=== PATIENT | female | born 1965 | race Caucasian/White ===

== ENCOUNTER 2024-10-31 08:28 | Emergency (ER) | payer OTHER, SELFPAY ==
[2024-10-31 08:49] VITALS: BP 175/104; PULSE 67; RESP 16; TEMP 36.8; O2SAT 97; BMI 29.5
--- NOTE | 2024-10-31 09:50 | ED.GENADULT ---
HPI - General Adult General Chief complaint: General Medical Stated complaint: pysch eval Time Seen by Provider: 10/31/24 09:49 Source: patient Mode of arrival: ambulatory Limitations: no limitations History of Present Illness ED Provider: Yanira Morales PA-C HPI narrative: Patient is a 58 year old assigned female at with a history of depression, anxiety, HTN, and heart surgery presenting to the emergency department today requesting a medication refill. Patient states that she is on Sertraline 150mg a day and has been out for at least 2 weeks. Patient states that she tried to get her new child psychology teacher to prescribed it but she won't. Patient states that she is not sure why her records reflect that she hasn't filled that prescription since 10/2023. Patient states that it may be because she was getting the medication from a friend whose mother was prescribed it and recently . Patient states that she need something because she is yelling at everyone . Patient denies any dizziness, lightheadedness, abdominal pain, nausea, vomiting, fever, chills, blurry vision, double vision, loss of vision, chest pain, difficulty breathing, shortness of breath, back pain, night sweats, pain with urination, increased urinary frequency, increased urinary urgency, blood in her urine or stool, syncope or a near syncopal episode, recent trauma or falls, bowel incontinence, bladder incontinence, or any other complaints at this time. Relieving factors: none Exacerbating factors: none Associated symptoms: denies other symptoms Treatments prior to arrival: none Related Data Previous Rx's ?Medication ?Instructions ?Recorded sertraline 50 mg tablet 50 mg PO DAILY #30 tabs 10/31/24 Allergies Allergy/AdvReac Type Severity Reaction Status Date / Time erythromycin base Allergy Intermediate ITCHING/RASH/GI Verified 10/31/24 08:54 [ERYTHROMYCIN BASE] UPSET Penicillins [PENICILLINS] Allergy Intermediate ITCHING/JUAN JOSE Verified 10/31/24 08:54 H vancomycin [VANCOMYCIN] Allergy Mild FLUSHED Verified 10/31/24 08:54 FACE AND ITCHINESS penicillin V Allergy Unknown Hives Verified 10/31/24 08:54 arithomycin Allergy Unknown Hives Uncoded 10/31/24 08:54 Review of Systems Constitutional: Constitutional: Reports no additional constitutional complaints, Denies chills, Denies fever(s) and Denies night sweats Eyes: Eyes: Reports no additional eye complaints, Denies blurry vision, Denies change in vision, Denies diplopia, Denies eye discharge, Denies loss of vision and Denies eye pain ENT: Denies dizziness Cardiovascular: Cardiovascular: Reports no additional cardiovascular complaints, Denies chest pain, Denies lightheadedness, Denies Loss of Consciousness and Denies dyspnea Respiratory: Respiratory: Reports no additional respiratory complaints and Denies dyspnea Gastrointestinal: Gastrointestinal: Reports no additional gastrointestinal complaints, Denies abdominal pain, Denies melena, Denies hematochezia, Denies change in bowel habits and Denies change in stool character Genitourinary: Genitourinary: Denies hematuria, Denies urinary frequency, Denies dysuria, Denies urinary incontinence, Denies urinary hesitancy and Denies urinary urgency Musculoskeletal: Musculoskeletal: Reports no additional musculoskeletal complaints, Denies numbness and Denies tingling Neurologic: Reports behavioral changes, Denies dizziness, Denies loss of vision, Denies numbness and Denies tingling Psychiatric: Psychiatric: Reports behavioral changes Endocrine: Endocrine: Reports no additional endocrine complaints Hematologic/Lymphatic: Hematologic/Lymphatic: Reports no additional hematologic/lymphatic complaints Allergic/Immunologic: Allergic/Immunologic: Reports no additional allergic/immunologic complaints PMFSH Past Medical History Attestation statement: The following information was validated with the patient. Source: old records reviewed and nursing notes reviewed Social History Social History Advance Directives: No Advance Directives Information Provided: No Do you have a plan to hurt others: No Plan Physical Exam ED Vital Signs: Vital Signs - 24 hr 10/31/24 08:49 Temperature 98.2 F Pulse Rate 67 Respiratory Rate 16 Blood Pressure 175/104 H Pulse Oximetry 97 Oxygen Delivery Method Room Air BMI result Body Mass Index 29.5 Const General: cooperative, no acute distress, alert and awake Nutritional Appearance: well nourished Orientation/consciousness: patient oriented x3 Limitations: no limitations HENMT Head: Yes normal to inspection and Yes atraumatic Ears: hearing grossly normal bilaterally and external ears normal General nose exam: Normal external nose present, no nasal discharge noted and no epistaxis Face and sinus: Yes normal facial exam, No abrasion and No laceration Mouth: Normal oral and palatal mucosa present, no drooling and no muffled voice Eyes General: appearance normal, both eyes and all related structures Periorbital: periorbital findings normal Eyelids: Yes eyelids normal Conjunctivae: conjunctivae normal Pupils: Equal, round and reactive pupils present EOM: EOMs intact bilaterally Neck Neck: Yes normal visual inspection, Yes full ROM and Yes no lymphadenopathy Chest Chest palpation & inspection: normal inspection of the chest Resp Effort & Inspection: normal respiratory effort and able to speak in complete sentences GI Inspection: Yes normal to inspection Neuro General: patient oriented x3 and moves all extremities Cranial nerves: Yes Equal, round and reactive pupils present Cognition (Neuro): normal cognition Extrem General: Yes normal to inspection, Yes full ROM and Yes capillary refill normal Psych Appearance: grossly normal Mental Status: mental status grossly normal Affect: normal affect Attitude: cooperative Thought process: Normal thought process present Thought content: Normal thought content present Insight: Good insight present (Psych) Medical Decision Making Medical Decision Making MDM Narrative: Patient is a 58 year old assigned female at with a history of depression, anxiety, HTN, and heart surgery presenting to the emergency department today requesting a medication refill. Patient's physical exam was unremarkable. I consulted with the psychiatry team who recommended starting the patient on 50mg of Sertraline and having her follow up with her PCP / psychiatrist. I explained my physical exam findings as well as all test results to the patient. I answered all questions asked by the patient. Patient confirmed she does not have any thoughts of hurting herself or others. I stressed the importance of the patient taking her medication as directed (either prescribed or as the over the counter packaging recommends). I stressed the importance of the patient following up with her primary care provider. I stressed the importance of the patient returning to the emergency department immediately if her symptoms were to worsen or if she were to develop any dizziness, shortness of breath, difficulty breathing, chest pain, blurry vision, loss of vision, nausea, vomiting, abdominal pain, fever, chills, back pain, or any other complaints. Patient verbalized agreement and understanding with this treatment plan and discharge. Differential Diagnosis Differential Diagnoses: The differential diagnosis associated with the presentation includes Medication refill Admission/Observation Consideration of admission/observation: Escalation of care including admission/observation considered Patient would have been admitted to the hospital had her clinical presentation warranted hospital admission. Consult Healthcare Provider Management of the patient was discussed with: Director Of Entertainment (spoke with the psychiatry team as noted in the MDM Rationale portion of this note.) Discharge Plan Discharge Clinical Impression: Medication refill Patient Disposition: Home, Self-Care Instructions: Medicine Refill (ED) Additional Instructions: Follow up with your primary care provider and your psychiatrist. Return to the emergency department immediately if your symptoms worsen or if you develop any dizziness, shortness of breath, difficulty breathing, chest pain, blurry vision, loss of vision, nausea, vomiting, abdominal pain, fever, chills, back pain, or any other complaints. Prescriptions: New sertraline 50 mg tablet 50 mg PO DAILY Qty: 30 0RF Print Language: Luxembourgish
[2024-10-31 11:58] VITALS: BP 150/87; PULSE 71; RESP 18; TEMP 36.9; O2SAT 97
[2024-10-31 12:20] VITALS: BP 150/87; PULSE 71; RESP 18; TEMP 36.9; O2SAT 97
[2024-10-31 12:22] VITALS: BP 150/87; PULSE 71; RESP 18; TEMP 36.9; O2SAT 97
== END 2024-10-31 12:22 | disposition home or self-care (01) ==
PROVIDERS: Emergency Provider Emergency Medicine; PCP Nurse Practitioner Family
DX: F33.1 Major depressive disorder, recurrent, moderate (principal); I10 Essential (primary) hypertension; Z76.0 Encounter for issue of repeat prescription; Z79.899 Other long term (current) drug therapy
CPT/HCPCS: 99283; 99284

== ENCOUNTER 2024-11-10 09:46 | Emergency (ER) | payer OTHER, SELFPAY ==
--- NOTE | ~2024-11-10 | CT_ITS ---
EXAMINATION: CT CHEST WITHOUT CONTRAST CLINICAL INFORMATION: Fall, rib fractures. COMPARISON: None available. TECHNIQUE: Multidetector volumetric CT imaging of the chest was done. Axial MIP volume rendering provided. Sagittal and coronal reformatted images were obtained. This CT examination was performed using dose optimization techniques as appropriate, variously including the following: *Automated exposure control *Adjustment of mA and/or kV according to patient size (this includes techniques or standardized protocols for targeted exams where dose is matched to indication/reason for exam; i.e. extremities or head) *Use of iterative reconstruction technique FINDINGS: LUNGS: -There is no pneumothorax or pleural effusion. -There are minimal subpleural fibrotic changes in the lateral right middle lobe, anterolateral right lower lobe, and posterior and lateral left lower lobe. Mild subpleural fibrosis also present in the medial inferior left upper lobe and lateral inferior left upper lobe. Minimal scarring seen in the lingular segment. -9 x 6 mm oval nodule in the inferior most right upper lobe abutting the minor fissure (series 29, image 224), with small low-attenuation foci measuring fat density, finding consistent with hamartoma. -No additional suspicious nodules. -No consolidative opacities. -Small airways are normal. -Central airways are patent. MEDIASTINUM: -Mild cardiac enlargement. No pericardial effusion. -No abnormal lymphadenopathy or mass within the mediastinum. -Aorta is normal in caliber and course. -Main pulmonary arteries are normal in size. -Thyroid is mildly heterogeneous without dominant nodule. -Small type I hiatus hernia and GE junction. CORONARY ARTERY CALCIFICATION: None visualized on this study. PLEURA: There is no pleural effusion. No pneumothorax. AXILLA: No lymphadenopathy. UPPER ABDOMEN: -There is a 1.8 cm low-attenuation oval mass in segment 2, nonspecific. There is a smaller 0.9 cm low-attenuation mass in segment 8. These are nonspecific and do not definitively represent cysts. -There has been a cholecystectomy. -There is borderline splenic enlargement. -Only the superior kidneys are imaged, possible hydronephrosis versus parapelvic cysts. Refer to the dedicated CT abdomen and pelvis. OSSEOUS STRUCTURES: -No discrete fractures are identified. No definite rib fractures seen. The vertebral column and ribs appear intact. CT/CT chest wo IV con IMPRESSION: 1. No acute posttraumatic abnormalities identified. 2. Mild regions of subpleural fibrosis as discussed. No pneumothorax or effusion. 3. Mild cardiac enlargement. No pericardial effusion. 4. A 6 mm oval nodule abutting the minor fissure within the inferior right upper lobe. This has low-attenuation foci suggestive of fat, and is most consistent with a benign hamartoma. Electronically signed by: Neeraj Regan MD 11/10/2024 12:34 PM [facility]
--- NOTE | ~2024-11-10 | CT_ITS ---
EXAMINATION: CT ABDOMEN AND PELVIS WITHOUT CONTRAST CLINICAL INFORMATION: Fall, rule out spine or pelvis fracture. COMPARISON: No prior. TECHNIQUE: Multidetector volumetric imaging was performed from the superior aspect of the liver through the pubic symphysis. Sagittal and coronal reformatted images were obtained on the technologist's workstation. This CT examination was performed using dose optimization techniques as appropriate, variously including the following: *Automated exposure control *Adjustment of mA and/or kV according to patient size (this includes techniques or standardized protocols for targeted exams where dose is matched to indication/reason for exam; i.e. extremities or head) *Use of iterative reconstruction technique FINDINGS: LUNG BASES: The visualized lung bases are unremarkable. LIVER, GALLBLADDER, AND BILIARY TREE: Liver demonstrates a subtle 1.5 cm hypoattenuating segment 2 mass. There is a 1.1 cm subtle hypoattenuating segment 8 mass. These do not meet criteria for simple cysts but cannot be further characterized. Gallbladder is surgically absent. No biliary dilatation. PANCREAS: Unremarkable. SPLEEN: Unremarkable. ADRENAL GLANDS: Unremarkable. KIDNEYS AND URETERS: - Mild hydronephrosis of both renal collecting systems with transition to normal caliber at both UPJs, suggestive of chronic UPJ obstructions. No calculi or renal mass. The ureters are normal. BLADDER: Normal/intact. GASTROINTESTINAL TRACT: -Moderate-sized type I hiatus hernia. -Normal appendix. -Small bowel and colon demonstrate no focal abnormalities, wall thickening, or dilatation. ABDOMINAL WALL: -Tiny fat-containing umbilical hernia. LYMPH NODES: Normal. VASCULAR: Unremarkable. PELVIC VISCERA: The uterus and adnexa are unremarkable. OSSEOUS STRUCTURES: -Mild superior endplate concavity of L1 appears chronic. -No acute fractures evident. The pelvis is intact. -Bone island left pedicle L5. CT/CT abdomen pelvis wo IV con IMPRESSION: 1. No acute findings in the abdomen or pelvis. No fractures seen. 2. 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 3. There are 2 nonspecific hypoattenuating foci in the liver, larger measuring 1.5 cm in segment II, not meeting criteria for simple cysts. No prior for comparison. In the absence of known malignancy these are likely benign entities. Further evaluation could be obtained with MRI if felt warranted. Electronically signed by: Neeraj Regan MD 11/10/2024 12:51 PM EST
--- NOTE | ~2024-11-10 | CT_ITS ---
EXAMINATION: CT HEAD WITHOUT CONTRAST CLINICAL INFORMATION: fall COMPARISON: CT report dated February 24, 2013. TECHNIQUE: Contiguous axial imaging was performed from the skull base to vertex without intravenous administration of contrast. This CT examination was performed using dose optimization techniques as appropriate, variously including the following: *Automated exposure control *Adjustment of mA and/or kV according to patient size (this includes techniques or standardized protocols for targeted exams where dose is matched to indication/reason for exam; i.e. extremities or head) *Use of iterative reconstruction technique DLP: 2256 mGy-cm FINDINGS: Bony calvarium is intact. Skull base is intact. No acute hematoma, intraconal or extraconal compartments of the orbits. No acute intracranial hemorrhage, mass effect, midline shift, hydrocephalus or herniation. Marinelli-white matter differentiation is normal. Posterior cranial fossa contents demonstrated no acute intracranial hemorrhage or mass effect. Calcified plaques in the cavernous supracavernous segments both ICAs. Retention cysts versus polyp, right maxillary sinus. Levoconvex nasal septum herniation. Tympanic cavities and mastoid air cells are aerated.. CT/CT head/brain wo IV con IMPRESSION: No acute fracture, bony calvarium. No acute intracranial hemorrhage. Electronically signed by: Brown Jenkins MD 11/10/2024 12:14 PM [facility]
--- NOTE | ~2024-11-10 | CT_ITS ---
EXAMINATION: CT CERVICAL SPINE WITHOUT CONTRAST CLINICAL INFORMATION: Status post fall. COMPARISON: None available. TECHNIQUE: Contiguous axial images through the cervical spine using 3 mm collimation with bone and soft tissue algorithm. Sagittal and coronal reformatted images acquired. This CT examination was performed using dose optimization techniques as appropriate, variously including the following: *Automated exposure control *Adjustment of mA and/or kV according to patient size (this includes techniques or standardized protocols for targeted exams where dose is matched to indication/reason for exam; i.e. extremities or head) *Use of iterative reconstruction technique. DLP: 406.96 mGy centimeter. FINDINGS: Craniocervical junction is intact. C1 is intact. C2 is intact. C3 is intact. C4 is intact. C5 is intact. C6 is intact. C7 is intact. No gross malalignment. No gross prevertebral compartment hematoma. Multilevel cervical spondylosis from C4 to C7. Tympanic cavities and mastoid air cells are aerated. CT/CT cervical spine wo IV con IMPRESSION: Multilevel cervical spondylosis. No acute fracture or trauma-related listhesis. If patient's symptoms persist recommend MRI cervical spine. Fleischner guidelines were followed. Electronically signed by: Brown Jenkins MD 11/10/2024 12:22 PM [email or web address]
[2024-11-10 09:49] VITALS: BP 190/110; PULSE 83; O2SAT 95
[2024-11-10 09:54] VITALS: BP 178/89; PULSE 80; RESP 18; TEMP 36.7; O2SAT 97; BMI 31.4
--- NOTE | 2024-11-10 10:34 | ED.GENADULT ---
HPI - General Adult General Chief complaint: Fall Stated complaint: SLIP/FALL WALKING DOG,HIT HEAD,+THINN,-LOC PER EMS Time Seen by Provider: 11/10/24 10:04 Source: patient Mode of arrival: ambulatory Limitations: no limitations History of Present Illness ED Provider: Fernando Whitfield PA-C HPI narrative: 58 yold female presents to the ED for fall. patient states she slipped on ice and fell. Patient states she fell while walking the dog. Patient denies any chest pain, shortness of breath, headache, dizziness, abdominal pain before fall. Patient states she slipped on ice and fell. Patient is complaining of headache and neck pain Related Data Previous Rx's ?Medication ?Instructions ?Recorded sertraline 50 mg tablet 50 mg PO DAILY #30 tabs 10/31/24 cyclobenzaprine 10 mg tablet 10 mg PO BEDTIME PRN muscle spasm 11/10/24 #10 tabs Allergies Allergy/AdvReac Type Severity Reaction Status Date / Time erythromycin base Allergy Intermediate ITCHING/RASH/GI Verified 11/10/24 09:57 [ERYTHROMYCIN BASE] UPSET Penicillins [PENICILLINS] Allergy Intermediate ITCHING/JUAN JOSE Verified 11/10/24 09:57 H vancomycin [VANCOMYCIN] Allergy Mild FLUSHED Verified 11/10/24 09:57 FACE AND ITCHINESS penicillin V Allergy Unknown Hives Verified 11/10/24 09:57 arithomycin Allergy Unknown Hives Uncoded 11/10/24 09:57 Review of Systems Review of Systems: headache, and neck pain Yes all other systems are reviewed and are negative Physical Exam ED Vital Signs: Vital Signs - 24 hr 11/10/24 09:54 11/10/24 12:00 11/10/24 13:42 Temperature 98.0 F 97.5 F 97.5 F Pulse Rate 80 76 76 Respiratory Rate 18 16 16 Blood Pressure 178/89 H 162/91 H 162/91 H Pulse Oximetry 97 96 96 Oxygen Delivery Method Room Air Room Air Room Air BMI result Body Mass Index 31.4 Const General: cooperative, healthy appearing, comfortable, no acute distress, well developed, alert, awake and Physically active Orientation/consciousness: patient oriented x3 HENMT Head: Yes normal to inspection, Yes No palpable skull fracture present, Yes normocephalic and Yes atraumatic Head images: 1. Tenderness on palpation but negative for any hematoma, ecchymosis, crepitus, or lacerations Eyes General: appearance normal, both eyes and all related structures Neck Neck: Yes normal visual inspection, Yes full ROM, Yes no lymphadenopathy, Yes no meningeal signs, Yes trachea midline, Yes supple, No anterior neck swelling and Yes tender (posterior cervical) Chest Chest palpation & inspection: normal inspection of the chest and normal palpation of entire chest wall Resp Effort & Inspection: normal respiratory effort and able to speak in complete sentences Auscultation: clear to auscultation bilaterally Cardio Jugular venous distension: no JVD Heart sounds: S1 normal heart sound present and S2 normal heart sound present GI Inspection: Yes normal to inspection Palpation (GI): Soft to palpation, not firm, nontender, no guarding and not rigid General: Yes no CVA tenderness Back/Spine/Pelvis Back: no CVA tenderness and No back tenderness Skin General skin exam: no rashes or lesions noted, elasticity normal and turgor normal Neuro General: patient oriented x3, gait normal, tone normal, moves all extremities, Normal light touch and pain sensation, no meningeal signs, no focal motor deficits, CN's II-XI intact bilaterally and normal sensation to monofilament Extrem Other: All extremities negative for swelling, redness, ecchymosis, crepitus, tenderness, or deformity. Motor/neuro/vascular exam intact. General: Yes normal to inspection, Yes full ROM and Yes capillary refill normal Psych Appearance: grossly normal, well kempt and not disheveled Medications Administered Discontinued Medications Generic Name Dose Route Start Last Admin Trade Name Freq PRN Reason Stop Dose Admin Acetaminophen 975 mg 11/10/24 10:30 11/10/24 10:56 Acetaminophen 325 Mg Tablet PO 11/10/24 10:31 975 mg ONCE ONE Administration Medical Decision Making Medical Decision Making [facility] Narrative: 58-year-old female presents to ED for fall while walking dog. Patient has slipped due to ice. Patient had mechanical fall. Patient is sent for imaging. Tylenol given. Patient is on blood thinner. 1:27pm: Patient is alert oriented x3. Whole-body evaluated negative for signs of life-threatening etiology. Patient no longer has any shoulder pain. not suspecting any shoulder fracture or dislocations. Patient just having neck pain referred to bilateral shoulders after fall. Cervical spine CT scan shows radiculopathy. Not suspecting AR. Patient has benign lung nodule and benign mass on liver. Patient made aware of those given copy of the images. Patient explained worrisome signs and informed to return to the ED immediately. Not suspecting stroke, AR, CHF, brain bleed, cervical spine fracture, pneumothorax, hemothorax, any life-threatening etiology. Patient given copy of the images for follow-up. Differential Diagnosis Differential Diagnoses: The differential diagnosis associated with the presentation includes (Hip fracture brain bleed, cervical spine fracture) Admission/Observation Consideration of admission/observation: Escalation of care including admission/observation considered Independent Interpretation I performed an independent interpretation of an: CT Scan Radiology Impression Discussion of test interpretation with radiology: I have reviewed the radiologist's reading. Independent Historian Clinical information obtained from an independent historian. History obtained from or confirmed by: Other (Patient) Discharge Plan Discharge Clinical Impression: Fall Patient Disposition: Home, Self-Care Instructions: Fall Prevention for Older Adults (ED) Additional Instructions: Return to the ED immediately for any chest pain, shortness of breath, abdominal pain, neck pain, dizziness, slurred speech, facial droop, paralysis of extremities, loss of vision, redness, swelling, bluish black discoloration, headache, blood in stool, blood in urine, vomiting blood, or any other concerning symptoms. Due to you taking blood thinners he should only take Tylenol for pain relief. You will be also given muscle relaxer. Prescriptions: New cyclobenzaprine 10 mg tablet 10 mg PO BEDTIME PRN (Reason: muscle spasm) Qty: 10 0RF Rx Instructions: side effect is drowsiness. Do not take work or driving No Action sertraline 50 mg tablet 50 mg PO DAILY Qty: 30 0RF Stand Alone Forms: Work/School Release Interventions: ED Discharge Assessment Last Done: 11/10/24 13:42 Discharge Date/Time: 11/10/24 13:43 Print Language: Malay
--- OUTSIDE RECORDS SUMMARY | 2024-11-10 10:54 | XMS_ITS | Encounter Summary ---
Author Organization [facility] Address [address] [place] [address] Phone Care Team Providers Care Radiology Assistant Name Role Phone Fred Meléndez MD Primary Care Provider +1- [phone] Encounter Details Date Type Department Care Team (Late st Contact Info) Description 01/09/2024 Documentation Only [facility] [address] [place] [address] Merle Randolph [address] [place] [address] Social History Tobacco Use Types Packs/Day Years Used Date Smoking Tobacco: Never Alcohol Use Standard Drinks/Week Comments No 0 (1 standard drink = 0.6 oz pur e alcohol) Comments Unknown Sex and Gender Information Value Date Recorded Sex Assigned at Not on file Legal Sex Female 4:31 PM EST Gender Identity Not on file Sexual Orientation Not on file documented as of this encounter Plan of Treatment Upcoming Encounters Date Type Department Care Team (Late st Contact Info) Description 01/06/2025 3:45 PM EDT Office Visit [facility] [address] [place] [address] Elder Romero MD [address] [place] [address] [place] [address] documented as of this encounter Visit Diagnoses Not on filedocumented in this encounter Care Teams Radiology Assistant Relationship Specialty Start Date End Date Fred Meléndez MD [address] [place] [address] [address] [place] PCP - General 08/12/19 documented as of this encounter
--- OUTSIDE RECORDS SUMMARY | 2024-11-10 10:54 | XMS_ITS | Encounter Summary ---
Author Organization [facility] Address [address] [place] [address] Phone Care Team Providers Care Switch Maker Name Role Phone Fred Meléndez MD Primary Care Provider +1- [phone] Encounter Details Date Type Department Care Team (Late st Contact Info) Description 11/16/2023 Documentation Only [facility] [address] [place] [address] Merle Randolph [address] [place] [address] Social History Tobacco Use Types [...] Visit [facility] [address] [place] [address] Elder Romero MD [address] [place] [address] [place] [address] documented as of this encounter Visit Diagnoses Not on filedocumented in this encounter Care Teams Switch Maker Relationship Specialty Start Date End Date Fred Meléndez MD [address] [place] [address] [address] [place] PCP - General 08/12/19 documented as of this encounter
--- OUTSIDE RECORDS SUMMARY | 2024-11-10 10:54 | XMS_ITS | Encounter Summary ---
Author Organization [facility] [place], Address [address] [place] [address] Phone Care Team Providers Care Pit Tanner Name Role Phone Fred Meléndez MD Primary Care Provider +1- [phone] Encounter Details Date Type Department Care Team (Late Contact Info) Description 11/03/2022 Documentation Only [facility] [address] [place] [address] Anant Krause [place] [address] [place] [address] Social History Tobacco Use Types [...] Visit [facility] [address] [place] [address] Elder Romero MD [address] [place] [address] [place] [address] documented as of this encounter Visit Diagnoses Not on filedocumented in this encounter Care Teams Pit Tanner Relationship Specialty Start Date End Date Fred Meléndez MD [address] [place] [address] [address] [place] PCP - General 08/12/19 documented as of this encounter
--- OUTSIDE RECORDS SUMMARY | 2024-11-10 10:54 | XMS_ITS | Encounter Summary ---
Author Organization [facility] Address [address] [place] [address] Phone Care Team Providers Care Mortgage Underwriter Name Role Phone Fred Meléndez MD Primary Care Provider +1- [phone] Encounter Details Date Type Department Care Team (Late st Contact Info) Description 10/29/2023 Documentation Only [facility] [address] [place] [address] Merle Randolph [address] [place] [address] Social History Tobacco Use Types [...] Visit [facility] [address] [place] [address] Elder Romero MD [address] [place] [address] [place] [address] documented as of this encounter Visit Diagnoses Not on filedocumented in this encounter Care Teams Mortgage Underwriter Relationship Specialty Start Date End Date Fred Meléndez MD [address] [place] [address] [address] [place] PCP - General 08/12/19 documented as of this encounter
--- OUTSIDE RECORDS SUMMARY | 2024-11-10 10:54 | XMS_ITS | Encounter Summary ---
Author Organization [facility] [place], Address [address] [place] [address] Phone Care Team Providers Care Board Winder Name Role Phone Fred Meléndez MD Primary Care Provider +1- [phone] Encounter Details Date Type Department Care Team (Late st Contact Info) Description 09/15/2021 Documentation Only [facility] [address] [place] [address] Elder Romero MD [address] [facility] [place] [address] Social History Tobacco Use Types Packs/Day Years [...] Visit [facility] [address] [place] [address] Elder Romero MD [address] [facility] [place] [address] documented as of this encounter Visit Diagnoses Not on filedocumented in this encounter Care Teams Board Winder Relationship Specialty Start Date End Date Fred Meléndez MD [address] [place] [address] [address] [place] PCP - General 08/12/19 documented as of this encounter
--- OUTSIDE RECORDS SUMMARY | 2024-11-10 10:54 | XMS_ITS | Encounter Summary ---
Author Organization [facility] [place], Address [address] [place] [address] Phone Care Team Providers Care Child Care Centre Director Name Role Phone Fred Meléndez MD Primary Care Provider +1- [phone] Encounter Details Date Type Department Care Team (Late st Contact Info) Description 10/11/2022 Documentation Only [facility] [address] [place] [id number] Rich Argueta PA Social History Tobacco Use Types Packs/Day Years [...] Visit [facility] [address] [place] [address] Elder Romero MD [address] [place] [address] [place] [address] documented as of this encounter Visit Diagnoses Not on filedocumented in this encounter Care Teams Child Care Centre Director Relationship Specialty Start Date End Date Fred Meléndez MD [address] [place] [address] [address] [place] PCP - General 08/12/19 documented as of this encounter
--- OUTSIDE RECORDS SUMMARY | 2024-11-10 10:54 | XMS_ITS | Encounter Summary ---
Author Organization [facility] [place], Address [address] [place] [address] Phone Care Team Providers Care Paraprofessional Education Assistant Name Role Phone Fred Meléndez MD Primary Care Provider +1- [phone] Encounter Details Date Type Department Care Team (Late st Contact Info) Description 10/27/2024 Orders Only [facility] [address] [place] [address] Rich Argueta PA Chronic kidney disease, stage 2 (mild); Essential (primary) hypertension; History of repair of mitral valve; Mood disorder, not otherwise specified (HCC); USP current use of anticoagulant; Long-term current use of lithium; Hematuria, not otherwise specified Social History Tobacco Use Types Packs/Day Years [...] Visit [facility] [address] [facility] [place] [address] Elder Romero MD [address] [place] [address] [place] [address] documented as of this encounter Visit Diagnoses Diagnosis Chronic kidney disease, stage 2 (mild) Essential (primary) hypertension History of repair of mitral valve Mood disorder, not otherwise specified (HCC) USP current use of anticoagulant Long-term current use of lithium Hematuria, not otherwise specified documented in this encounter Care Teams Paraprofessional Education Assistant Relationship Specialty Start Date End Date Fred Meléndez MD [address] [place] [address] [address] [place] PCP - General 08/12/19 documented as of this encounter
--- OUTSIDE RECORDS SUMMARY | 2024-11-10 10:54 | XMS_ITS | Clinical Summary ---
Author Organization [facility], Address [address] [place] [address] [place] [address] Phone Care Team Providers Care Flying Instructor Name Role Phone Fred Meléndez MD Primary Care Provider [phone] Allergies Active Allergy Reactions Criticality Noted Date Comments [place] 10/13/2022 Other reaction(s): itchy throat Erythromycin Other (see comments) 10/09/2021 Erythromycin Base 10/29/2023 Penicillin G Other (see comments) 10/09/2021 Medications ferrous sulfate 324 (65 Fe) MG EC tablet Active LORazepam (Ativan) 0.5 MG tablet Take 1 tablet by mouth 1 (one) time each day Active nitroglycerin (NITROSTAT) 0.[address] under the tongue Active raNITIdine (ZANTAC) 150 MG capsule Take 1 capsule by mouth 2 (two) times a day Active topiramate (Topamax) 50 MG tablet Take 1 tablet by mouth 2 (two) times a day Active warfarin (Coumadin) 5 MG tablet Take 1 tablet by mouth 1 (one) time each day Active buPROPion SR (WELLBUTRIN SR) 150 MG 12 hr tablet Take 150 mg by mouth daily Do not crush, chew, or split. Active lithium 150 MG capsule Take 150 mg by mouth every night Active LORazepam (Ativan) 0.5 MG tablet Take 0.5 mg by mouth 01/01/2017 Active nitroglycerin (NITROSTAT) 0.[address] 0.4 mg under the tongue 03/09/2016 Active sertraline (ZOLOFT) 100 MG tablet Take 1.5 tablets by mouth 06/14/2021 Active zolpidem (AMBIEN) 5 MG tablet Take 5 mg by mouth 07/07/2020 Active Aspirin Buf,CaCarb-MgCa rb-MgO, 81 MG tablet Take 81 mg by mouth 10/25/2005 Active metoprolol tartrate 25 MG tablet Take 25 mg by mouth in the morning and 25 mg in the evening. Active omeprazole (PriLOSEC) [address] capsule Take 20 mg by mouth 1 (one) time each day 11/10/2023 Active amLODIPine (NORVASC) 5 MG tablet Take 1 tablet (5 mg total) by mouth every night 90 tablet 3 11/28/2023 5 Active Active Problems Problem Noted Date Diagnosed Date Hematuria 12/10/2023 Chronic kidney disease, stage 2 (mild) 4 Essential (primary) hypertension 12/06/2023 halfway current use of anticoagulant 3 History of repair of mitral valve 10/31/2022 Mood disorder 10/31/2022 Long-term current use of lithium 10/31/2022 Stage 3a chronic kidney disease 01/14/2020 Overview (10/11/2020): Update for Diagnosis Load Resolved Problems Problem Noted Date Diagnosed Date Resolved Date Back pain 08/03/2020 10/09/2021 Cerebrovascular accident 01/14/202011/2021 Myocardial infarction 01/14/20202022 Renal stone 01/14/2020 10/31/2022 Sleep apnea 01/14/2020 01/14/2020 Encounters Date Type Department Care Team Description 10/27/2024 Orders Only [facility], [address] [place] [address] Rich Argueta PA Chronic kidney disease, stage 2 (mild); Essential (primary) hypertension; History of repair of mitral valve; Mood disorder, not otherwise specified (HCC); 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; Long-term current use of lithium; Hematuria, not otherwise specified from Last 3 Months Immunizations Name Administration Dates Next Due Influenza Whole 07/01/2009,07/25/2007 Influenza, Unspecified 09/15/2021,2020,08/19/2019,09/23/2018,10/0 06/2014,09/10/2013,08/15/2006 Pfizer SARS-COV-2 05/17/2021,04/12/2021 Pneumococcal Polysaccharide 10/08/2004 Td, Unspecified 08/15/2005 Family History Relation Status Comments Father Unknown Mother Unknown Social History Tobacco Use Types Packs/Day Years Used Date Smoking Tobacco: Never Tobacco Cessation:Counseling Given: Not Answered Alcohol Use Standard Drinks/Week Comments No 0 (1 standard drink = 0.6 oz pur e alcohol) Comments Unknown Sex and Gender Information Value Date Recorded Sex Assigned at Not on file Legal Sex Female 4:31 PM EST Gender Identity Not on file Sexual Orientation Not on file Last Filed Vital Signs Vital Sign Reading Time Taken Comments Blood Pressure 178/96 12/06/2023 3:54 PM EST Pulse 74 01/14/2019 12:00 PM EDT Temperature - - Respiratory Rate 16 01/14/2019 12:0 0 PM EDT Oxygen Saturation - - Inhaled Oxygen Concentration - - Weight 90.6 kg (199 lb 12.8 oz) 12/06/2023 3:54 PM EST Height 175.3 cm (5' 9 ) 12/06/2023 3:54 PM EST Body Mass Index 29.51 12/06/2023 3:54 PM EST Plan of Treatment Upcoming Encounters Date Type Department Care Team (Late st Contact Info) Description 01/06/2025 3:45 PM EDT Office Visit [facility] [address] [place] [address] Elder Romero MD [address] [place] [id number] Health Maintenance Due Date Last Done Comments Breast Cancer Screening 1965 Hepatitis B Vaccine (1 of 3 - 19+ 3-dose series) 1983 Pneumococcal Vaccine: Pediat rics (0 to 5 Years) and At-Risk Patients (6 to 64 Years) (2 of 2 - PCV) 10/08/2005 10/08/2004 Colorectal Cancer Screening: Annual FOBT 2013 Colorectal Cancer Screening: Colonoscopy 2013 Colorectal Cancer Screening: Sigmoidoscopy 2013 Influenza Vaccine (#1) 2024 , 12/28/2020, 08/19/2019, Additional history exists Insurance [facility] Care Teams Flying Instructor Relationship Specialty Start Date End Date Fred Meléndez MD [address] [place] [address] [address] [place] PCP - General 08/12/19
[2024-11-10] MEDS: Acetaminophen 325 MG TABLET 975 MG PO (10:56)
[2024-11-10 12:00] VITALS: BP 162/91; PULSE 76; RESP 16; TEMP 36.4; O2SAT 96
[2024-11-10 13:42] VITALS: BP 162/91; PULSE 76; RESP 16; TEMP 36.4; O2SAT 96
== END 2024-11-10 13:43 | disposition home or self-care (01) ==
PROVIDERS: Emergency Provider Emergency Medicine; PCP Nurse Practitioner Family
DX: S09.90XA Unspecified injury of head, initial encounter (principal); M54.2 Cervicalgia; R51.9 Headache, unspecified; R07.89 Other chest pain; R10.2 Pelvic and perineal pain; W00.0XXA Fall on same level due to ice and snow, initial encounter; Y93.K1 Activity, walking an animal; Y92.480 Sidewalk as the place of occurrence of the external cause; Y99.8 Other external cause status
CPT/HCPCS: 70450; 71250; 72125; 74176; 99283; 99284

== ENCOUNTER → 2024-11-10 10:48 | Outpatient (BNV) | payer OTHER, SELFPAY | PROVIDERS: Emergency Provider Emergency Medicine; PCP Nurse Practitioner Family; Visit Provider Radiology Diagnostic Radiology | DX: N13.0 Hydronephrosis with ureteropelvic junction obstruction (principal); K76.89 Other specified diseases of liver; J84.10 Pulmonary fibrosis, unspecified; I51.7 Cardiomegaly; M47.892 Other spondylosis, cervical region; S09.90XA Unspecified injury of head, initial encounter | CPT/HCPCS: 70450; 71250; 72125; 74176 ==